=== PATIENT | female | born 1985 | race African-American/Black ===

== ENCOUNTER 2020-12-04 13:55 | Inpatient (IN) | payer BC ==
[2020-12-04] MEDS ORDERED: AMPICILLIN SODIUM 2 GM VIAL ONE (15:12)
[2020-12-04 15:48] LABS: BASO % 0.2 % (0-2.0); EOS % 0.6 % (0-4.5); HEMATOCRIT 31.4 % (32.4-45.2); LYMPH % 20.3 % (8-40); MCH 33.8 pg (25.7-33.7); MCHC 35.1 g/dl (32.0-36.0); MEAN CELL VOLUME 96.3 fl (80-96); MEAN PLT VOLUME 9.4 fl (7.5-11.1); NEUT % 69.9 % (42.8-82.8); PLATELET COUNT 124 K/MM3 (134-434); RBC 3.26 M/mm3 (3.60-5.2); RDW 12.6 % (11.6-15.6); WHITE BLOOD COUNT 5.8 K/mm3 (4.0-10.0)
[2020-12-04 15:59] LABS: INR 0.9 (0.83-1.09); PROTHROMBIN TIME (PATIENT) 11.1 SEC (9.7-13.0)
[2020-12-04] MEDS ORDERED: BUPIVACAINE HCL/PF 0.25% (2.5MG/ML) 10 ML VIAL ONE (16:00)
[2020-12-04] MEDS ORDERED: LIDOCAINE HCL 1% PRESERVATIVE FREE - 30ML VIAL ONE (16:08)
[2020-12-04] MEDS ORDERED: OXYTOCIN 20 UNITS in 0.9% NS 20 UNIT/1,000 ML INFUS.BAG IV ONE ×2 (16:08→18:52)
[2020-12-04] MEDS ORDERED: OXYTOCIN 30 UNITS in 0.9% NS 30 UNIT/500 ML INFUS.BAG IVPB ONE (16:09)
[2020-12-04 16:14] LABS: POTASSIUM 3.9 mmol/L (3.5-5.1)
[2020-12-04 16:21] LABS: CALCIUM 7.9 mg/dL (8.5-10.1)
[2020-12-04 16:22] LABS: BLOOD UREA NITROGEN 17.3 mg/dL (7-18)
[2020-12-04 16:25] LABS: CREATININE 0.6 mg/dL (0.55-1.3)
[2020-12-04] MEDS ORDERED: OXYTOCIN 20 UNITS in 0.9% NS 20 UNIT/1,000 ML INFUS.BAG IV SCH (16:40)
[2020-12-04] MEDS ORDERED: ACETAMINOPHEN 325 MG TABLET (FP) ONE (16:53)
[2020-12-04] MEDS ORDERED: IBUPROFEN 600 MG TABLET (FP) PO ONE (16:53)
[2020-12-04] MEDS: IBUPROFEN 600 MG TABLET (FP) PO PRN ×2 (16:55→21:22)
[2020-12-04] MEDS: ACETAMINOPHEN 325 MG TABLET (FP) PO PRN ×2 (16:55→21:21)
[2020-12-04 17:09] LABS: HIV INTERPRETATION NEGATIVE (NEGATIVE)
[2020-12-04 17:21] VITALS: BMI 30.2
[2020-12-04] MEDS ORDERED: SODIUM CHLORIDE 1,000 ML IV SCH (19:15)
[2020-12-04] MEDS ORDERED: BISACODYL 10 MG SUPP.RECT RC PRN (20:05)
[2020-12-04] MEDS ORDERED: WITCH HAZEL 50% (TUCKS) 40 PAD/JAR PAD TP PRN (20:05)
[2020-12-04] MEDS ORDERED: oxyCODONE HCL 5 MG TABLET PO PRN (20:05)
[2020-12-04] MEDS ORDERED: METHYLERGONOVINE MALEATE 0.2 MG/1 ML AMP IM PRN (20:05)
[2020-12-04] MEDS ORDERED: BENZOCAINE 20% 57 GM BOTTLE TP PRN (20:05)
[2020-12-04] MEDS ORDERED: BENZOCAINE 28 GM HEMORRHOIDAL OINTMENT TP PRN (20:05)
[2020-12-05 08:43] LABS: BASO % 0.2 % (0-2.0); EOS % 0.4 % (0-4.5); HEMATOCRIT 29.9 % (32.4-45.2); HEMOGLOBIN 10.5 GM/dL (10.7-15.3); LYMPH % 10.6 % (8-40); MCH 34.2 pg (25.7-33.7); MCHC 35.1 g/dl (32.0-36.0); MEAN CELL VOLUME 97.3 fl (80-96); MEAN PLT VOLUME 9.7 fl (7.5-11.1); MONO % 5.3 % (3.8-10.2); NEUT % 83.5 % (42.8-82.8); PLATELET COUNT 112 K/MM3 (134-434); RBC 3.08 M/mm3 (3.60-5.2); RDW 12.7 % (11.6-15.6); WHITE BLOOD COUNT 9.3 K/mm3 (4.0-10.0)
[2020-12-05] MEDS: PRENATAL VITAMINS W/ FOLIC ACID TABLET (FP) PO SCH (10:20)
[2020-12-05] MEDS: ACETAMINOPHEN 325 MG TABLET (FP) PO PRN ×2 (10:23→22:30)
[2020-12-05] MEDS: IBUPROFEN 600 MG TABLET (FP) PO PRN ×2 (10:24→22:30)
[2020-12-05] MEDS ORDERED: SENNOSIDES/DOCUSATE COMBO (SENNA PLUS) TABLET (UD) PO PRN (22:00)
[2020-12-06] MEDS: OXYTOCIN 20 UNITS in 0.9% NS 20 UNIT/1,000 ML INFUS.BAG IV SCH (00:47)
[2020-12-06 10:09] VITALS: BP 110/60; PULSE 74; TEMP 98.6
[2020-12-06] MEDS: PRENATAL VITAMINS W/ FOLIC ACID TABLET (FP) PO SCH (10:10)
[2020-12-06] MEDS: ACETAMINOPHEN 325 MG TABLET (FP) PO PRN (10:13)
[2020-12-06] MEDS: IBUPROFEN 600 MG TABLET (FP) PO PRN (10:14)
== END 2020-12-06 12:50 | disposition home or self-care (01) | DRG 807 ==
LOC: JLDR 13:55 → J3W 19:45
PROVIDERS: ADMIT Obstetrics & Gynecology; ATTEND Obstetrics & Gynecology
PROC: 10E0XZZ Delivery of Products of Conception, External Approach (ICD-10-PCS; principal; 2020-12-04)
PROC: 10907ZC Drainage of Amniotic Fluid, Therapeutic from Products of Conception, Via Natural or Artificial Opening (ICD-10-PCS; 2020-12-04)
DX: O70.0 First degree perineal laceration during delivery (principal); Z37.0 Single live birth; O69.81X0 Labor and delivery complicated by cord around neck, without compression, not applicable or unspecified; O77.0 Labor and delivery complicated by meconium in amniotic fluid; Z3A.39 39 weeks gestation of pregnancy
CPT/HCPCS: 36415; 59409; 80048; 85025; 85610; 85730; 86780; 86850; 86900; 86901; 87389; C9803; U0003